=== PATIENT | female | born 1990 | race Caucasian/White ===

== ENCOUNTER 2016-11-25 17:13 | Emergency (ER) | payer OTHER ==
[~2016-11-25] VITALS: Ht 167.6 cm; Wt 111.1 kg
--- NOTE | 2016-11-25 17:49 | ED CARDIAC/CP/PALPITATIONS ---
History of Present Illness General Chief Complaint: Chest Pain Stated Complaint: CP, SOB Source: patient, old records Exam Limitations: no limitations Vital Signs & Intake/Output Vital Signs & Intake/Output Vital Signs Date Time Temp Pulse Resp B/P Pulse O2 O2 Flow FiO2 Ox Delivery Rate 11/25 1724 98.2 84 18 115/74 98 Room Air Allergies Coded Allergies: No Known Allergies (11/25/16) Reconcile Medications Copper (Paragard T 380-A) 380 SQUARE MM IUD CONTROL (Reported) Triage Note: RECEIVED 26 YO FEMALE WITH HX OF PE AND DVT, C/O ANTERIOR CHEST PAIN STARTED MONDAY WITH INTERMITTENT PALPITATIONS AND SOME SOB. Triage Nurses Notes Reviewed? yes Onset: Abrupt Duration: day(s): (4), intermittent, waxing and waning Timing: recent history Quality/Severity: moderate, aching, burning Location: central Radiation: no radiation Activities at Onset: none Prior Chest Pain/Card Workup: h/o pe 2013 Aspirin Today: no aspirin today Associated Symptoms: int dyspnea : No Patient currently breastfeeds: No HPI: 26-year-old female with history of pulmonary embolism and DVT in 2013 presents emergency room complaining of 4 day history of sudden onset left-sided chest pain as nonradiating associated with intermittent dyspnea that came on while at rest. She states the symptoms are intermittent in nature and seemed to get worse with palpation of her chest. However she states that she had similar episodes when she was diagnosed with a pulmonary embolism. She states that she was told these were due to prior control use which she is no longer on. She denies tobacco use fever chills cough hemoptysis. No recent immobility or travel no leg swelling or pain. She is not currently on any medication including blood thinners. Nothing makes the pain otherwise better or worse. it is not worse with exertion (STANISLAV PIMENTEL) Past History Travel History Traveled to [place] past 21 day No Medical History Any Pertinent Medical History? see below for history Neurological: NONE EENT: NONE Cardiovascular: NONE Respiratory: pulmonary embolism Gastrointestinal: NONE Hepatic: NONE Renal: NONE Musculoskeletal: DVT Psychiatric: NONE Endocrine: NONE Blood Disorders: NONE Cancer(s): NONE Surgical History Surgical History: non-contributory Psychosocial History What is your primary language [place] Tobacco Use: Never used Family History Hx Contributory? No (STANISLAV PIMENTEL) Review of Systems Review of Systems Constitutional: Reports: see HPI. All Other Systems: Reviewed and Negative Comments Review of systems: See HPI, All other systems negative. Constitutional, no chills no fever, no malaise HEENT: No visual changes no sore throat no congestion Cardiovascular: chest pain , no palpitation , Skin,no rashes, no change in skin Respiratory: dyspnea no cough no sputum GI: No nausea no vomiting, no diarrhea, : No dysuria Muscle skeletal: No joint pain, no back pain, no neck pain, Neurologic: no headache Psych: No stress Heme/endocrine: No bruising no bleeding Immunology: No lymphadenopathy, (STANISLAV PIMENTEL) Physical Exam Physical Exam General Appearance: well developed/nourished, alert, awake Cardiovascular: regular rate/rhythm Comments: Well-developed well-nourished person in no acute distress HEENT: Normal EENT exam; PERRL, EOMI. HEAD is atraumatic. moist mucous membranes. Neck: Supple,normal range of motion Back: Nontender, no CVA tenderness. Full range of motion Cardiovascular: Regular rate and rhythms no murmurs rubs or gallops, normal JVP Respiratory: Chest tender.There were no bony deformities, no asymmetry. No respiratory distress. Patient speaking in full complete sentences. Breath sounds clear to auscultation bilaterally: NO W/R/R Abdomen: Soft, nontender nondistended, Extremity: No edema, full range of motion of extremities, neg homans Neuro: Alert oriented x3, motor sensory normal, There were no obvious focal neurologic abnormalities. Skin: No appreciable rash on exposed skin, skin is warm and dry. Psych: Mood and affect is normal, memory and judgment is normal. Core Measures ACS in differential dx? Yes Severe Sepsis Present: No Septic Shock Present: No (STANISLAV PIMENTEL) Progress Differential Diagnosis: cholecystitis, CHF/pulm edema, costochondritis, musculoskeletal pain, myocarditis, pancreatitis, pericarditis, pneumonia, pneumothorax, PSVT, pulmonary embolism, PVCs/PACs, unstable angina Plan of Care: Orders Procedure Date/time Status TROPONIN LEVEL 11/25 174 Complete PROTHROMBIN TIME 11/25 174 Complete HUMAN BETA HCG SCREEN 11/25 174 Complete COMPREHENSIVE METABOLIC PANEL 11/25 174 Complete CBC WITHOUT DIFFERENTIAL 11/26 1743 Complete EKG 11/25 1715 Active Laboratory Tests 11/25/16 1757: Anion Gap 13, Estimated GFR > 60, BUN/Creatinine Ratio 12.9, Glucose 88, Calcium 9.3, Total Bilirubin 0.5, AST 22, ALT 39, Alkaline Phosphatase 58, Troponin I < 0.01, Total Protein 6.8, Albumin 4.0, Globulin 2.8, Albumin/Globulin Ratio 1.4, Total Beta HCG NEGATIVE, PT 12.1, INR 1.15, CBC w Diff NO MAN DIFF REQ, RBC 5.27 , MCV 82.5, MCH 26.5 L, RDW 13.6, MPV 8.1, Gran % 67.0, Lymphocytes % 23.1, Monocytes % 5.8, Eosinophils % 3.7, Basophils % 0.4, Absolute Granulocytes 6.5, Absolute Lymphocytes 2.3, Absolute Monocytes 0.6, Absolute Eosinophils 0.4, Absolute Basophils 0, PUBS MCHC 32.2 L Labs ordered old records reviewed patient denies any symptoms at this time speaking full complete sentences. Case d/w dr stephens 11/25/2016 6:43:14 PM discussed with the patient at length all of her lab results to date resting in no apparent distress she denies symptoms. Case d/w and signed out to tomas grimaldo at 1900 pending labs/ct (STANISLAV PIMENTEL) 11/25/2016 8:15:34 PM: Signout received from Stanislav Emmanuel. Patient evaluated. Results discussed with patient and her family. Appears stable for discharge. (NATALYA RODRÍGUEZ) Diagnostic Imaging: Viewed by Me: CT Scan. Discussed w/RAD: CT Scan. Initial ED EKG: NORMAL SINUS 80, NO ACUTE st SEGMENT CHANGES NORMAL AXIS Hand-Off Endorsed To: NATALYA RODRÍGUEZ Endorsed Time: 1899 Pending: CT, labs (STANISLAV PIMENTEL) Diagnostic Imaging: Discussed w/RAD: CT Scan. Radiology Impression: PATIENT: GARCIA URIBE PRESENT AGE: 26 PATIENT ACCOUNT NO: [id number] : 89 LOCATION: [facility] ORDERING PHYSICIAN: STANISLAV HETSER SERVICE DATE: 11/25/16 EXAM TYPE: CAT - CTA CHEST-PULMONARY EMBOLISM EXAMINATION: CT ANGIOGRAM OF THE CHEST WITH AND WITHOUT CONTRAST (CT PULMONARY ANGIOGRAM FOR PE) CLINICAL INFORMATION: Chest pain and dyspnea. History of pulmonary embolism. COMPARISON: None. TECHNIQUE: Prior to contrast administration, noncontrast localization images were obtained. Subsequently, multidetector volumetric imaging was performed from the thoracic inlet to below the diaphragms following the administration of 125 mL Optiray 350 intravenous contrast. No contrast reaction reported. Sagittal, coronal, and MIP oblique sagittal reformatted images were obtained on the CT workstation, uploaded to PACS, and reviewed. Total exam dose-length product 475 mGy-cm. FINDINGS: QUALITY OF STUDY/CONTRAST BOLUS: Adequate contrast opacification of the pulmonary arterial vasculature. PULMONARY ARTERIES: No evidence of pulmonary embolism to the left left the subsegmental pulmonary arteries. THORACIC AORTA: Normal caliber of the thoracic aorta. No centrally displaced intraluminal flaps to suggest aortic dissection. Normal three-vessel branching of the aortic arch. LUNG: The lungs are well-expanded and clear without focal airspace consolidation. No suspicious pulmonary nodules or masses are identified. PLEURA: No pleural effusion or pneumothorax. MEDIASTINUM: Normal heart size, without significant pericardial effusion. Normal three-vessel branching of the aortic arch. Incidental note is made of a vessel within the prevascular space. 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 No evidence of septal bowing or right heart strain. CHEST WALL/AXILLA: No axillary or internal mammary lymphadenopathy. OSSEOUS STRUCTURES: No acute or suspicious osseous abnormality. UPPER ABDOMEN: No acute findings within the upper abdomen. No reflux of contrast into the hepatic veins to suggest elevated right heart pressures. IMPRESSION: Adequate contrast opacification of the pulmonary arterial vasculature, without evidence of pulmonary embolism. No large central pulmonary emboli. Incidental note is made of a vessel within the prevascular space. This finding is nonspecific but may reflect a persistent left-sided SVC. VTE: Negative. DICTATED BY: BELKIS TRAN MD DATE/TIME DICTATED:11/25/161956 MOBILE THERAPIST:CHIP DATE/TIME TRANSCRIBED:11/25/161956 CONFIDENTIAL, DO NOT COPY WITHOUT APPROPRIATE AUTHORIZATION. <Electronically signed in Other Vendor System> SIGNED BY: BELKIS TRAN MD 11/25/162008 (NATALYA RODRÍGUEZ) Departure Departure Disposition: HOME OR SELF CARE Condition: Stable Referrals: PATIENT HAS NO PRIMARY CARE DR (PCP/Family) Departure Forms: Customer Survey General Discharge Information (STANISLAV PIMENTEL) PA/THERAPEUTIC RECREATION DIRECTOR Co-Sign Statement Statement: ED Attending supervision documentation- [] I saw and evaluated the patient. I have also reviewed all the pertinent lab results and diagnostic results. I agree with the findings and the plan of care as documented in the PA's/THERAPEUTIC RECREATION DIRECTOR's documentation. [X] I have reviewed the ED Record and agree with the PA's/THERAPEUTIC RECREATION DIRECTOR's documentation. [] Additions or exceptions (if any) to the PAs/THERAPEUTIC RECREATION DIRECTOR's note and plan are summarized below: [] (MAURI VALENCIA,GRETTA Goel) Departure Time of Disposition: 2015 Clinical Impression Primary Impression: Chest pain Qualifiers: Chest pain type: unspecified Qualified Code: R07.9 - Chest pain, unspecified Additional Instructions: Take ibuprofen (Advil/Motrin) as directed. Return to the emergency department if worsening symptoms. (NATALYA RODRÍGUEZ) Critical Care Note Critical Care Note Critical Care Time: non-applicable (STANISLAV PIMENTEL)
[2016-11-25] MEDS ORDERED: PARAGARD T 3801 EACH (18:18)
[2016-11-25 18:19] LABS: ABSOLUTE BASOPHIL COUNT 0 /CUMM (0.0-0.2); ABSOLUTE EOSINOPHIL COUNT 0.4 /CUMM (0.0-0.7); ABSOLUTE GRANULOCYTE CT 6.5 /CUMM (1.4-6.5); ABSOLUTE LYMPH COUNT 2.3 /CUMM (1.2-3.4); ABSOLUTE MONOCYTE COUNT 0.6 /CUMM (0.10-0.60); BASOPHIL % 0.4 % (0.0-2.0); EOSINOPHIL % 3.7 % (0-5); HEMATOCRIT 43.5 % (37-47); MEAN CORPUSCULAR HGB 26.5 PG (27.0-31.0); MEAN CORPUSCULAR HGB CONC 32.2 G/DL (33.0-37.0); MEAN CORPUSCULAR VOLUME 82.5 FL (81.0-99.0); MEAN PLATELET VOLUME 8.1 FL (7.4-10.4); PLATELET COUNT 298 /CUMM (130-400); RBC DISTRIBUTION WIDTH 13.6 % (11.5-14.5); RED BLOOD CELL CT 5.27 /CUMM (4.20-5.40); WHITE BLOOD CELL COUNT 9.7 /CUMM (4.8-10.8)
[2016-11-25 18:30] LABS: PT 12.1 SEC (9.4-12.5)
--- NOTE | 2016-11-25 20:09 | CT SCAN REPORT ---
EXAMINATION: CT ANGIOGRAM OF THE CHEST WITH AND WITHOUT CONTRAST (CT PULMONARY ANGIOGRAM FOR PE) CLINICAL INFORMATION: Chest pain and dyspnea. History of pulmonary embolism. COMPARISON: None. TECHNIQUE: Prior to contrast administration, noncontrast localization images were obtained. Subsequently, multidetector volumetric imaging was performed from the thoracic inlet to below the diaphragms following the administration of 125 mL Optiray 350 intravenous contrast. No contrast reaction reported. Sagittal, coronal, and MIP oblique sagittal reformatted images were obtained on the CT workstation, uploaded to PACS, and reviewed. Total exam dose-length product 475 mGy-cm. FINDINGS: QUALITY OF STUDY/CONTRAST BOLUS: Adequate contrast opacification of the pulmonary arterial vasculature. PULMONARY ARTERIES: No evidence of pulmonary embolism to the left left the subsegmental pulmonary arteries. THORACIC AORTA: Normal caliber of the thoracic aorta. No centrally displaced intraluminal flaps to suggest aortic dissection. Normal three-vessel branching of the aortic arch. LUNG: The lungs are well-expanded and clear without focal airspace consolidation. No suspicious pulmonary nodules or masses are identified. PLEURA: No pleural effusion or pneumothorax. MEDIASTINUM: Normal heart size, without significant pericardial effusion. Normal three-vessel branching of the aortic arch. Incidental note is made of a vessel within the prevascular space. 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 No evidence of septal bowing or right heart strain. CHEST WALL/AXILLA: No axillary or internal mammary lymphadenopathy. OSSEOUS STRUCTURES: No acute or suspicious osseous abnormality. UPPER ABDOMEN: No acute findings within the upper abdomen. No reflux of contrast into the hepatic veins to suggest elevated right heart pressures. IMPRESSION: Adequate contrast opacification of the pulmonary arterial vasculature, without evidence of pulmonary embolism. No large central pulmonary emboli. Incidental note is made of a vessel within the prevascular space. This finding is nonspecific but may reflect a persistent left-sided SVC. VTE: Negative.
[2016-11-25 20:25] VITALS: BP 120/69
== END 2016-11-25 20:27 ==
LOC: ERH 17:13
PROVIDERS: Physician Assistant Medical
DX: R07.9 Chest pain, unspecified (principal)
CPT/HCPCS: 93005; 93010